=== PATIENT | male | born 1990 | race Caucasian/White ===

== ENCOUNTER 2019-12-03 21:21 | Emergency (ER) | payer SELFPAY ==
[~2019-12-03] VITALS: Ht 170.2 cm; Wt 121.8 kg
[2019-12-03] MEDS ORDERED: fentaNYL PF VIAL 100 MCG/2 ML VIAL IVP ONE (22:00)
[2019-12-03] MEDS ORDERED: ONDANSETRON PF 4 MG/2 ML VIAL. IVP ONE (22:00)
[2019-12-03] MEDS ORDERED: DIPH,PERTUSS(ACELL),TET VAC/PF 0.5 ML SYRINGE. VAX IM ONE (22:00)
[2019-12-03] MEDS ORDERED: ONDANSETRON ODT 4 MG TAB.RAPDIS. ONE (22:05)
--- NOTE | 2019-12-03 22:25 | PHYS DOC ---
Past Medical History Past Medical History: Hyperthyroid, Other Additional Past Medical Histor: hernia Past Surgical History: Other Additional Past Surgical Histo: breast reduction, toe reattatchment Smoking Status: Current Some Day Smoker Alcohol Use: None Drug Use: None General Adult EDM: Chief Complaint: EYE PROBLEMS HPI: HPI: Patient is a 29 year old male who presents with injury to his left eyelid. Patient heard his daughter screaming and turned around and ran right into a wire brusher which impaled his eyelid. Patient states that he pulled it out of his eyelid. He denies visual changes. He reports pain is a 10 out of 10 to the upper eyelid. He denies any other injuries. Injury occurred approximately 30 minutes prior to arrival. [] Review of Systems: Review of Systems: Constitutional: Denies fever or chills. [] Eyes: Denies change in visual acuity. [] Respiratory: Denies cough or shortness of breath. [] Cardiovascular: Denies chest pain or edema. [] Integument: Denies rash. Positive eyelid laceration [] Neurologic: Denies headache, focal weakness or sensory changes. [] A full 10 point review of systems has been reviewed and is otherwise negative. Heart Score: Risk Factors: Risk Factors: DM, Current or recent (<one month) smoker, HTN, HLP, family history of CAD, obesity. Risk Scores: Score 0 - 3: 2.5% MACE over next 6 weeks - Discharge Home Score 4 - 6: 20.3% MACE over next 6 weeks - Admit for Clinical Observation Score 7 - 10: 72.7% MACE over next 6 weeks - Early Invasive Strategies Current Medications: Current Medications Medications (Trade) Dose Ordered Sig/Alma Rosa Start Time Stop Time Status Last Admin Dose Admin Diphtheria/ Tetanus/Acell Pertussis (ADACEL TDap SYRINGE) 0.5 ml ONCE ONCE 12/03/19 22:00 12/03/19 22:01 DC 12/03/19 22:10 0.5 ML Fentanyl Citrate (Fentanyl 2ml Vial) 50 mcg 1X ONCE 12/03/19 22:30 12/03/19 22:31 UNV Ondansetron HCl (Zofran Odt) 4 mg 1X ONCE 12/03/19 22:30 12/03/19 22:31 UNV Ondansetron HCl (Zofran) 4 mg 1X ONCE 12/03/19 22:00 12/03/19 22:01 DC Allergies: Allergies: Allergies Coded Allergies Type Severity Reaction Last Updated Verified codeine Allergy Intermediate 12/26/18 Yes Physical Exam: PE: Constitutional: Well developed, well nourished, in mild distress due to pain. [] HENT: Normocephalic, atraumatic, bilateral external ears normal, oropharynx moist, no oral exudates, nose normal. [] Eyes: PERRLA, EOMI, left upper eyelid has full-thickness tear to the lateral margin of the eyelid, extending approximately 0.5 cm cephalad. [] Neck: Normal range of motion, no tenderness, supple, no stridor. [] Cardiovascular: Regular rate and rhythm [] Lungs & Thorax: Bilateral breath sounds clear to auscultation [] Abdomen: Bowel sounds normal, soft, no tenderness. [] Skin: Warm, dry, no erythema, no rash. [] Extremities: No tenderness, no cyanosis, no clubbing, ROM intact, no edema. [] Neurologic: Alert and oriented X 3, no focal deficits noted. [] Current Patient Data: Vital Signs: Vital Signs Date Time Temp Pulse Resp B/P (MAP) Pulse Ox O2 Delivery O2 Flow Rate FiO2 12/03/19 21:31 98.8 56 18 99/61 (74) 97 Room Air 98.8 EKG: EKG: [] Radiology/Procedures: Radiology/Procedures: [] Course & Med Decision Making: Course & Med Decision Making Pertinent Labs and Imaging studies reviewed. (See chart for details) Patient moved to room upon arrival was evaluated by ER medical staff after which patient given medication for pain and nausea. Given significance of injury, patient was deemed appropriate for transfer to higher level of care for oculoplastics consult. [facility] transfer center was contacted and Dr. Escamilla will accept patient in transfer. Left eye has been flushed with sterile saline and antibiotic ointment applied to wound. Dragon Disclaimer: New Disclaimer: This electronic medical record was generated, in whole or in part, using a voice recognition dictation system. Departure Departure Impression: Primary Impression: Eyelid laceration, left Qualified Codes: S01.112A - Laceration without foreign body of left eyelid and periocular area, initial encounter Disposition: 02 TRANSFER [facility] Condition: GOOD Referrals: NO PCP (PCP) MARIA INES STARR Jr. DO December 03, 2019:25
[2019-12-03 22:30] VITALS: BP 120/76
[2019-12-03] MEDS ORDERED: ERYTHROMYCIN 0.5% OPHTH OINTMENT 1GM TUBE. OS ONE (22:30)
[2019-12-03] MEDS ORDERED: fentaNYL PF VIAL 100 MCG/2 ML VIAL IM ONE (22:30)
[2019-12-03] MEDS ORDERED: ONDANSETRON ODT 4 MG TAB.RAPDIS. PO ONE (22:30)
== END 2019-12-03 23:18 | disposition short-term general hospital (02) ==
LOC: ER 21:21
DX: S01.112A Laceration without foreign body of left eyelid and periocular area, initial encounter (principal); E78.00 Pure hypercholesterolemia, unspecified; F17.200 Nicotine dependence, unspecified, uncomplicated; Z98.890 Other specified postprocedural states; Z88.5 Allergy status to narcotic agent; X58.XXXA Exposure to other specified factors, initial encounter; Y93.89 Activity, other specified; Y92.89 Other specified places as the place of occurrence of the external cause; Y99.8 Other external cause status
CPT/HCPCS: 90471; 90715; 96372; 99285; J3010; Q0162